=== PATIENT | female | born 2000 | race Hispanic/Latino ===

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

== ENCOUNTER 2020-03-15 08:37 | Emergency (ER) | payer OTHER, SELFPAY ==
--- NOTE | 2020-03-15 09:05 | ER ---
Nurse's Notes [facility] Name: Bruna Becerra Age: 19 yrs Sex: Female : 2000 Arrival Date: 03/15/2020 Time: 08:39 Bed 16 Private MD: Diagnosis: Otitis media, unspecified, bilateral;Acute upper respiratory infection, unspecified Presentation: 03/15 08:48 Chief complaint: Patient states: Bilateral ear pain x 2 days after blowing nose. jl7 Coronavirus screen: Client denies travel out of the [place] in the last 14 days. At this time, the client does not indicate any symptoms associated with coronavirus-19. Ebola Screen: No symptoms or risks identified at this time. Initial Sepsis Screen: Does the patient meet any 2 criteria? No. Patient's initial sepsis screen is negative. Does the patient have a suspected source of infection? No. Patient's initial sepsis screen is negative. Risk Assessment: Do you want to hurt yourself or someone else? Patient reports no desire to harm self or others. Onset of symptoms was March 13, 2020. Care prior to arrival: None. Transition of care: patient was not received from another setting of care. 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 - Social history:: Smoking status: Patient denies any tobacco usage or history of. Screenin:25 Abuse screen: Denies threats or abuse. Denies injuries from another. Nutritional jl7 screening: No deficits noted. Tuberculosis screening: No symptoms or risk factors identified. Fall Risk None identified. Assessment: 09:25 General: Appears in no apparent distress. uncomfortable, Behavior is calm, cooperative, jl7 appropriate for age. Pain: Complains of pain in left ear and right ear Pain currently is 7 out of 10 on a pain scale. Neuro: Level of Consciousness is awake, alert, obeys commands, Oriented to person, place, time, situation. Cardiovascular: Patient's skin is warm and dry. Respiratory: Airway is patent Respiratory effort is even, unlabored, Respiratory pattern is regular, symmetrical. EENT: Reports nasal congestion pain in left ear and right ear. Derm: Skin is pink, warm \T\ dry. Vital Signs: 08:48 BP 136 / 88; Pulse 103; Resp 16 S; Temp 98.2(O); Pulse Ox 99% on R/A; Weight 99.79 kg jl7 (R); Pain 7/10; ED Course: 08:39 Patient arrived in ED. as 08:48 Britany Wang, RN is Primary Nurse. jl7 08:49 Carlo Mcnally PA is PHCP. cp 08:49 Carlo Adrian MD is Attending Physician. cp 08:50 Triage completed. jl7 08:50 Arm band placed on right wrist. jl7 09:15 COVID-19 swab sent to lab. jl7 09:25 Patient has correct armband on for positive identification. Bed in low position. Call jl7 light in reach. Side rails up X 1. Pulse ox on. NIBP on. 09:26 No provider procedures requiring assistance completed. Patient did not have IV access jl7 during this emergency room visit. Administered Medications: No medications were administered Outcome: 09:05 Discharge ordered by . cp 09:27 Discharged to home ambulatory. jl7 09:27 Condition: stable 09:27 Discharge instructions given to patient, Instructed on discharge instructions, follow up and referral plans. medication usage, Demonstrated understanding of instructions, follow-up care, medications, Prescriptions given X 1. 09:27 Patient left the ED. jl7 Addendum: 03/16/2020 14:41 Addendum: COVID-19 Result: Negative result given to RN to notify pt. Attempted to s s contact pt regarding negative COVID-19 swab results. Unable to leave voice mail due to the number provided was either not a working number, the voice mail has not been set up, or the voice mailbox is full.. Other: BUSY tone. Multiple attempts made. Signatures: Wendy Sutherland Shelby, RN MCKENZIE Carlo Mcnally PA PA cp Britany Wang, MCKENZIE [email or web address]
--- NOTE | 2020-03-15 09:05 | EDPHYS ---
Physician Documentation [facility] Name: Bruna Becerra Age: 19 yrs Sex: Female : 2000 Arrival Date: 03/15/2020 Time: 08:39 Bed 16 Private MD: ED Physician Carlo Adrian HPI: 03/15 08:59 This 19 yrs old Female presents to ER via Ambulatory with complaints of Ear cp Pain. 08:59 The patient presents with pain, that is acute. The complaints affect the right ear and cp left ear. Onset: The symptoms/episode began/occurred yesterday. Associated signs and symptoms: Pertinent positives: sore throat, cough, rhinorrhea, Pertinent negatives: fever, vomiting, diarrhea. 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 - Social history:: Smoking status: Patient denies any tobacco usage or history of. ROS: 09:00 Eyes: Negative for injury, pain, redness, and discharge. cp 09:00 Constitutional: Negative for body aches, chills, fever, poor PO intake. 09:00 ENT: Positive for ear pain, rhinorrhea, sore throat, Negative for drainage from ear(s), difficulty swallowing, difficulty handling secretions. 09:00 Cardiovascular: Negative for chest pain, palpitations. 09:00 Respiratory: Positive for cough, Negative for shortness of breath, wheezing. 09:00 Abdomen/GI: Negative for abdominal pain, vomiting, diarrhea, constipation. 09:00 Skin: Negative for rash. 09:00 Neuro: Negative for headache. 09:00 All other systems are negative. Exam: 09:02 Head/Face: Normocephalic, atraumatic. cp 09:02 Constitutional: The patient appears in no acute distress, alert, awake, non-toxic, well developed, well nourished. 09:02 Eyes: Periorbital structures: appear normal, Conjunctiva: normal, no exudate, no injection, Lids and lashes: appear normal, bilaterally. 09:02 ENT: External ear(s): are unremarkable, Ear canal(s): are normal, clear, TM's: bulging, on the right, erythema, that is moderate, bilaterally, Nose: nasal drainage, that is minimal, and is seen coming from both nares, that is clear, Mouth: Lips: moist, Oral mucosa: moist, Posterior pharynx: Airway: no evidence of obstruction, patent, Tonsils: no enlargement, no exudate, erythema, that is mild, exudate, is not appreciated. 09:02 Neck: ROM/movement: is normal, is supple, without pain, no range of motions limitations, no meningismus, Lymph nodes: no appreciated lymphadenopathy. 09:02 Chest/axilla: Inspection: normal. 09:02 Cardiovascular: Rate: tachycardic. 09:02 Respiratory: the patient does not display signs of respiratory distress, Respirations: normal, no use of accessory muscles, no retractions, labored breathing, is not present, Breath sounds: are clear throughout, no decreased breath sounds, no stridor, no wheezing. Vital Signs: 08:48 BP 136 / 88; Pulse 103; Resp 16 S; Temp 98.2(O); Pulse Ox 99% on R/A; Weight 99.79 kg jl7 (R); Pain 7/10; MDM: 08:49 Patient medically screened. [facility] 09:04 Data reviewed: vital signs, nurses notes, and as a result, I will discharge patient. cp 03/15 08:59 Order name: [id number]-19 cp Administered Medications: No medications were administered Disposition: 16:00 Co-signature as Attending Physician, Carlo Adrian MD I agree with the assessment and [facility] plan of care. Disposition: 03/15/20 09:05 Discharged to Home. Impression: Otitis media, unspecified, bilateral, Acute upper respiratory infection, unspecified. - Condition is Stable. - Discharge Instructions: Otitis Media, Adult, Upper Respiratory Infection, Adult. - Prescriptions for Amoxicillin 875 mg Oral Tablet - take 1 tablet by ORAL route every 12 hours for 10 days; 20 tablet. - Medication Reconciliation Form, Thank You Letter, Antibiotic Education, Prescription Opioid Use form. - Follow up: Private Physician; When: 2 - 3 days; Reason: Worsening of condition. - Problem is new. - Symptoms are unchanged. Signatures: Dispatcher [employer] EDMS Nguyễn, MD MD fatoumata Matos Corey, PA PA cp Leal, Jahala, RN RN jl7 Corrections: (The following items were deleted from the chart) 09:27 09:05 03/15/2020 09:05 Discharged to Home. Impression: Otitis media, unspecified, jl7 bilateral; Acute upper respiratory infection, unspecified. Condition is Stable. Forms are Medication Reconciliation Form, Thank You Letter, Antibiotic Education, Prescription Opioid Use. Follow up: Private Physician; When: 2 - 3 days; Reason: Worsening of condition. Problem is new. Symptoms are unchanged. cp
--- OUTSIDE RECORDS SUMMARY | 2020-03-15 09:37 | XMS REPORT | Summary of Care ---
:2000 Author Organization [facility] Address [address] [place] [address] Care Team Providers Name Role Phone Pcp, Patient Does Not Have A Primary Care Provider +[id number] 0-0000 Reason for Visit Reason Comments Results Encounter Details Date Type Department Care Team Description 01/17/2020 Telephone [facility] Pcp, Patient Does Not Results [address] [facility] [place] [address] [address] [facility] [phone] [place], [place] [address] Allergies Not on Filedocumented as of this encounter (statuses as of 01/17/2020) Medications Not on filedocumented as of this encounter (statuses as of 01/17/2020) Active Problems Not on filedocumented as of this encounter (statuses as of 01/17/2020) Social History Tobacco Use Types Packs/Day Years Used Date Never Assessed Sex Assigned at Date Recorded Not on file Job Start Date Occupation Industry Not on file Not on file Not on file Travel History Travel Start Travel End No recent travel history available. COVID-19 Exposure Response Date Recorded In the last month, have you been in contact with Yes 01/16/2020 3:08 PM CDT someone who was confirmed or suspected to have Coronavirus / COVID-19? documented as of this encounter Last Filed Vital Signs Not on filedocumented in this encounter Plan of Treatment Health Maintenance Due Date Last Done Comments VARICELLA VACCINES (1 of 2 - 2-dose 2001 childhood series) MENINGOCOCCAL B VACCINES (1 of 2 - 2010 Risk Bexsero 2-dose series) DTaP,Tdap,and Td Vaccines (1 - 2011 Tdap) HPV VACCINES (1 - Female 2-dose 2011 series) Depression Screening 2012 WELL CARE VISIT: 12-21 YEARS 2012 (yearly) CHLAMYDIA SCREENING 2016 INFLUENZA VACCINE (#1) 2020 MENINGOCOCCAL VACCINE Aged Out No longer eligible based on patient's age to complete this topic PNEUMOCOCCAL 0-64 YEARS COMBINED Aged Out No longer eligible based on SERIES patient's age to complete this topic documented as of this encounter Results Not on filedocumented in this encounter Additional Health Concerns Infection Onset Date Last Indicated Resolved Time COVID-19 Rule Out 01/16/2020 01/16/2020 01/17/2020 3: 25 PM CDT COVID-19 Confirmed 01/16/2020 01/16/2020 documented as of this encounter
--- OUTSIDE RECORDS SUMMARY | 2020-03-15 09:37 | XMS REPORT | Summary of Care ---
:2000 Author Organization [facility] Address [address] [place] [address] Care Team Providers Name Role Phone Pcp, Patient Does Not Have A Primary Care Provider +[id number] [id number] Encounter Details Date Type Department Care Team Description 01/16/2020 Letter (Out) [facility] MyChart Message s Doctor Unassigned, No [address] [facility] [place] [phone] [facility] [phone] [place] [address] Allergies Not on Filedocumented as of this encounter (statuses as of 01/16/2020) Medications Not on filedocumented as of this encounter (statuses as of 01/16/2020) Active Problems Not on filedocumented as of this encounter (statuses as of 01/16/2020) Social History Tobacco Use Types Packs/Day Years Used Date Never Assessed Sex Assigned at Date Recorded Not on file Job Start Date Occupation Industry Not on file Not on file Not on file Travel History Travel Start Travel End No recent travel history available. documented as of this encounter Last Filed [...]
--- OUTSIDE RECORDS SUMMARY | 2020-03-15 09:37 | XMS REPORT | Summary of Care ---
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 [address] [place] [id number] Suspected Covid-19 [facility], Ad[facility] Fam Pob I Virus Infection [address] [place] [address] (Primary D x) [place] [address] Allergies Not on Filedocumented as of this [...] filedocumented in this encounter Plan of Treatment Name Type Priority Associated Diagnoses Order S chedule COVID-19 (PCR MOLECULAR LAB Routine Suspected Covid-1 9 Virus Expected: 01/16/2020, TESTING) Infection Expires: 2020 Health Maintenance Due Date Last Done Comments [...] Results Not on filedocumented in this encounter Visit Diagnoses Diagnosis Suspected Covid-19 Virus Infection - Pat asael documented in this encounter Additional Health Concerns Infection Onset Date Last Indicated Resolved Time COVID-19 Rule Out 01/16/2020 01/16/2020 documented as of this encounter
--- OUTSIDE RECORDS SUMMARY | 2020-03-15 09:37 | XMS REPORT | Summary of Care ---
:2000 Author Organization [facility] Address [address] [place] [address] Care Team Providers Name Role Phone Pcp, Patient Does Not Have A Primary Care Provider [id number] 0-0000 Reason for Visit Reason Comments Results Encounter Details Date Type Department Care Team Description 01/17/2020 Telephone [facility] Pcp, Patient Does Not Results [address] [facility] [place] [address] [address] [place] [address] [place], [place] [address] Allergies Not on Filedocumented as of this encounter (statuses as of 01/19/2020) Medications Not on filedocumented as of this encounter (statuses as of 01/19/2020) Active Problems Not on filedocumented as of this encounter (statuses as of 01/19/2020) Social History Tobacco Use Types Packs/Day Years [...]
--- OUTSIDE RECORDS SUMMARY | 2020-03-15 09:37 | XMS REPORT | Continuity of Care Document ---
:2000 Author Organization [facility] t Address [address] [place] [address] Care Team Providers Name Role Phone Pcp, Patient Does Not Have A Attending Clinician [phone] Problems Condition Condition Condition Status Onset Resolution Last Treating Co mments Source Name Details Category Date Date Treatment Clinician Date Sprain of Sprain of Diagnosis Active [facility] anterior anterior [facility] - talofibula talofibula Me moria r ligament r ligament l [facility], ent initial initial Clinics encounter encounter Pain in Pain in Diagnosis Active [facility] left ankle Gisselle kes - and joints and joints Me moria of left of left l foot [facility] Clin[facility] Allergies, Adverse Reactions, Alerts This patient has no known allergies or adverse reactions. Medications This patient has no known medications. Procedures This patient has no known procedures. Encounters Start End Encounter Admission Attending Care Care Encounter Source Date/Time Date/Time Type Type Clinicians Facility Department ID 2020-01-17 2020-01-17 Telephone FREDDIE Benjamin [id number] 00:00:00 00:00:00 Patient LUIS [id number] Does Not HOSPITAL [id number] Have A [id number] 2018-07-14 2018-07-14 [facility] [id number] 10:30:00 10:30:00 t [facility] ent Clinics Results This patient has no known results.
[2020-03-15 10:20] VITALS: BP 136/88; TEMP 98.2; O2SAT 99
== END 2020-03-15 09:27 | disposition home or self-care (01) ==
LOC: ER 08:37
DX: H66.93 Otitis media, unspecified, bilateral (principal); Z20.828 Contact with and (suspected) exposure to other viral communicable diseases; J06.9 Acute upper respiratory infection, unspecified
CPT/HCPCS: 99283; U0002

== ENCOUNTER 2021-06-29 17:39 | Emergency (ER) | payer SELFPAY ==
[2021-06-29 23:35] LABS: Urine Blood Negative (Negative); Urine Glucose Negative (Negative); Urine Protein Trace (Negative); Urine Specific Gravity 1.025 (1.005-1.030)
[2021-06-29 23:36] LABS: Absolute Lymphocytes (CBC) 2.3 K/uL (0.7-4.9); Hematocrit 48.1 % (36.0-45.0); Lymphocytes % 16.8 % (15.3-44.8); MPV 10.2 fL (7.6-11.3); RBC Red Blood Cell Count 5.22 M/uL (3.86-4.86)
[2021-06-29] MEDS ORDERED: ONDANSETRON 4 MG (ODT) TAB ONE (23:39)
[2021-06-29] MEDS ORDERED: NA CHLORIDE 0.9% 1,000 ML ONE (23:39)
[2021-06-29 23:40] LABS: Urine Specific Gravity/Preg 1.025 (1.005-1.030)
[2021-06-29 23:54] LABS: ALT/SGPT 124 U/L (12-78); AST/SGOT 60 U/L (15-37); Albumin 3.9 g/dL (3.4-5.0); Alkaline Phosphatase 145 U/L (45-117); BUN Blood Urea Nitrogen 9 mg/dL (7-18); Bicarbonate 24 mmol/L (21-32); Bilirubin Direct 0.4 mg/dL (0-0.2); Bilirubin Total 1.2 mg/dL (0.2-1.0); Glucose Level 98 mg/dL (74-106); Lipase 136 U/L (73-393); Potassium 3.5 mmol/L (3.5-5.1); Protein, Total 9.1 g/dL (6.4-8.2); Sodium Level 134 mmol/L (136-145)
--- NOTE | 2021-06-30 01:31 | EDPHYS ---
Physician Documentation [facility] Name: Bruna Becerra Age: 21 yrs Sex: Female : 2000 Arrival Date: 06/29/2021 Time: 17:43 Bed DIS11 Private MD: ED Physician Carlo Adrian HPI: 06/29 18:53 This 21 yrs old Female presents to ER via Ambulatory with complaints of pm1 Abdominal Pain, Nausea/Vomiting. 18:53 The patient presents with abdominal pain. pm1 18:53 Onset: The symptoms/episode began/occurred 5 day(s) ago. The symptoms do not radiate. pm1 Associated signs and symptoms: Pertinent positives: nausea and vomiting, Pertinent negatives: chest pain, constipation, diarrhea, shortness of breath. The symptoms are described as achy. Modifying factors: The symptoms are alleviated by nothing, the symptoms are aggravated by nothing. Severity of pain: in the emergency department the pain is actually worse. The patient has not experienced similar symptoms in the past. The patient has not recently seen a physician. 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 - Social history:: Smoking status: Patient denies any tobacco usage or history of. ROS: 18:53 Constitutional: Negative for fever, chills, and weight loss, Cardiovascular: Negative pm1 for chest pain, palpitations, and edema, Respiratory: Negative for shortness of breath, cough, wheezing, and pleuritic chest pain. 18:53 Back: Negative for injury and pain, MS/Extremity: Negative for injury and deformity, Skin: Negative for injury, rash, and discoloration, Neuro: Negative for headache, weakness, numbness, tingling, and seizure. 18:53 Abdomen/GI: Positive for abdominal pain, nausea and vomiting, Negative for diarrhea, constipation. 18:53 All other systems are negative. Exam: 06/30 00:13 Constitutional: This is a well developed, well nourished patient who is awake, alert, pm1 and in no acute distress. Head/Face: Normocephalic, atraumatic. Back: No spinal tenderness. No costovertebral tenderness. Full range of motion. Skin: Warm, dry with normal turgor. Normal color with no rashes, no lesions, and no evidence of cellulitis. MS/ Extremity: Pulses equal, no cyanosis. Neurovascular intact. Full, normal range of motion. Cardiovascular: Exam negative for acute changes, Rate: normal, Rhythm: regular, Pulses: no pulse deficits are appreciated. Respiratory: Exam negative for acute changes, respiratory distress, shortness of breath, Breath sounds: are clear throughout. Abdomen/GI: Inspection: obese Palpation: soft, in all quadrants, mild abdominal tenderness, in the suprapubic area. Neuro: Exam negative for acute changes, Orientation: is normal, Mentation: is normal, Motor: is normal, moves all fours. Vital Signs: 06/29 18:41 BP 160 / 115; Pulse 99; Resp 18; Temp 98.1(O); Pulse Ox 97% ; Weight 95.25 kg; Height 5 smith ft. 4 in. (162.56 cm) (R); 23:46 BP 147 / 112; Pulse 87; Resp 16; Temp 98.8(O); Pulse Ox 98% ; lt3 06/30 01:46 BP 135 / 75; Pulse 75; Resp 18; Temp 98.4; bb 02:35 BP 131 / 96; Pulse 77; Resp 16 S; Temp 98.7(O); Pulse Ox 97% on R/A; bb 06/29 18:41 Body Mass Index 36.05 (95.25 kg, 162.56 cm) smith MDM: 06/29 18:57 Patient medically screened. pm1 06/30 01:29 Data reviewed: vital signs. Data interpreted: Pulse oximetry: on room air is 98 %. pm1 Interpretation: normal. Counseling: I had a detailed discussion with the patient and/or guardian regarding: the historical points, exam findings, and any diagnostic results supporting the discharge/admit diagnosis, lab results, radiology results, the need for outpatient follow up, to return to the emergency department if symptoms worsen or persist or if there are any questions or concerns that arise at home. 06/29 18:47 Order name: Basic Metabolic Panel; Complete Time: 23:58 pm1 06/29 18:47 Order name: CBC with Diff; Complete Time: 23:58 pm1 06/29 18:47 Order name: Hepatic Function; Complete Time: 23:58 pm1 06/29 18:47 Order name: Lipase; Complete Time: 23:58 pm1 06/29 23:35 Order name: Urine Dipstick-Ancillary; Complete Time: 23:58 EDMS 06/29 23:37 Order name: Urine --Ancillary (enter results); Complete Time: 23:58 ds4 06/29 18:47 Order name: IV Saline Lock; Complete Time: 23:30 pm1 06/29 18:47 Order name: Labs collected and sent; Complete Time: 23:30 pm1 06/29 18:47 Order name: Urine Dipstick-Ancillary (obtain specimen); Complete Time: 23:37 pm1 06/29 18:47 Order name: Urine Test (obtain specimen); Complete Time: 23:37 pm1 06/30 00:13 Order name: CT Abd/Pelvis - IV Contrast Only pm1 Administered Medications: 06/29 23:41 Drug: NS 0.9% 1000 ml Route: IV; Rate: 1000 ml; Site: right antecubital; 5 23:42 Drug: Ondansetron 4 mg Route: PO; sm5 Disposition Summary: 06/30/21 01:31 Discharge Ordered Location: Home pm1 Problem: new pm1 Symptoms: have improved pm1 Condition: Stable pm1 Diagnosis - Abdominal pain, unspecified pm1 - Vomiting pm1 Followup: pm1 - With: Emergency Department - When: As needed - Reason: Worsening of condition Followup: pm1 - With: Private Physician - When: 2 - 3 days - Reason: Recheck today's complaints, Continuance of care, Re-evaluation by your physician Discharge Instructions: - Discharge Summary Sheet pm1 - Abdominal Pain, Adult pm1 - Nausea and Vomiting, Adult pm1 Forms: - Medication Reconciliation Form pm1 - Thank You Letter pm1 - Antibiotic Education pm1 - Prescription Opioid Use pm1 Prescriptions: - ondansetron 4 mg Oral tablet,disintegrating - place 1 tablet by TRANSLINGUAL route every 8 hours As needed; 15 tablet; pm1 Refills: 0, Product Selection Permitted - dicyclomine 20 mg Oral Tablet - take 1 tablet by ORAL route every 6 hours As needed; 20 tablet; Refills: 0, pm1 Product Selection Permitted Addendum: 07/01/2021 09:07 I agree with the assessment and plan of care. larry smith Signatures: Dispatcher [employer] Carlo Watkins MD MD cha Marinas, Patrick, AIRCRAFT SHEET METAL MECHANIC AIRCRAFT SHEET METAL MECHANIC [email or web address] Ute Enciso RN RN 5 Mildred Hernández RN RN smith
--- NOTE | 2021-06-30 01:31 | ER ---
Nurse's Notes [facility] Name: Bruna Becerra Age: 21 yrs Sex: Female : 2000 Arrival Date: 06/29/2021 Time: 17:43 Bed DIS11 Private MD: Diagnosis: Abdominal pain, unspecified;Vomiting Presentation: 06/29 18:41 Chief complaint: Spouse and/or significant other states: abdominal pain n/v x5days. smith Coronavirus screen: Vaccine status: Patient reports receiving the 2nd dose of the covid vaccine. Ebola Screen: Patient denies travel to an Ebola-affected area in the 21 days before illness onset. Initial Sepsis Screen: Does the patient meet any 2 criteria? No. Patient's initial sepsis screen is negative. Does the patient have a suspected source of infection? No. Patient's initial sepsis screen is negative. Risk Assessment: Do you want to hurt yourself or someone else? Patient reports no desire to harm self or others. Onset of symptoms was June 24, 2021. 18:41 Method Of Arrival: Ambulatory smith 18:41 Acuity: JOHAN 3 smith Triage Assessment: 18:42 General: Appears in no apparent distress. Behavior is calm, cooperative. Pain: smith Complains of pain in abdomen. GI: Reports lower abdominal pain, nausea, vomiting. 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 - Social history:: Smoking status: Patient denies any tobacco usage or history of. Screenin:30 Abuse screen: Denies threats or abuse. Nutritional screening: No deficits noted. bb Tuberculosis screening: No symptoms or risk factors identified. Fall Risk None identified. Assessment: 23:30 General: Appears in no apparent distress. uncomfortable, Behavior is calm, cooperative. bb Pain: Complains of pain in abdomen. Neuro: Level of Consciousness is awake, alert, obeys commands, Oriented to person, place, time, situation. Cardiovascular: No deficits noted. Respiratory: Respiratory effort is even, unlabored. GI: Abdomen is round. Derm: Skin is pink, warm \T\ dry. Musculoskeletal: Circulation, motion, and sensation intact. 06/30 02:35 Reassessment: Patient is alert, oriented x 3, equal unlabored respirations, skin bb warm/dry/pink. pt verbalized understanding of and agrees to plan of care discharge instructions given pt ambulated with steady gait to exit. Vital Signs: 06/29 18:41 BP 160 / 115; Pulse 99; Resp 18; Temp 98.1(O); Pulse Ox 97% ; Weight 95.25 kg; Height 5 smith ft. 4 in. (162.56 cm) (R); 23:46 BP 147 / 112; Pulse 87; Resp 16; Temp 98.8(O); Pulse Ox 98% ; lt3 06/30 01:46 BP 135 / 75; Pulse 75; Resp 18; Temp 98.4; bb 02:35 BP 131 / 96; Pulse 77; Resp 16 S; Temp 98.7(O); Pulse Ox 97% on R/A; bb 06/29 18:41 Body Mass Index 36.05 (95.25 kg, 162.56 cm) smith ED Course: 06/29 17:43 Patient arrived in ED. am2 18:42 Triage completed. smith 18:42 Arm band placed on. smith 18:44 Marcelino Hurley NP is PHCP. pm1 18:44 Carlo Adrian MD is Attending Physician. pm1 23:29 Initial lab(s) drawn, by hi, sent to lab. Inserted saline lock: 22 gauge in right lt3 antecubital area, using aseptic technique. 23:30 Patient has correct armband on for positive identification. Bed in low position. Call bb light in reach. 23:30 No provider procedures requiring assistance completed. bb 23:46 Urine collected: clean catch specimen. lt3 06/30 00:44 CT Abd/Pelvis - IV Contrast Only In Process Unspecified. EDMS 02:37 IV discontinued, intact, bleeding controlled, No redness/swelling at site. Pressure bb dressing applied. Administered Medications: 06/29 23:41 Drug: NS 0.9% 1000 ml Route: IV; Rate: 1000 ml; Site: right antecubital; sm5 23:42 Drug: Ondansetron 4 mg Route: PO; sm5 Outcome: 06/30 01:31 Discharge ordered by . pm1 02:37 Discharged to home ambulatory. bb 02:37 Condition: stable 02:37 Discharge instructions given to patient, Instructed on discharge instructions, follow up and referral plans. medication usage, Demonstrated understanding of instructions, follow-up care, medications, Prescriptions given X 2. 02:38 Patient left the ED. honorio Signatures: Dispatcher [employer] EDLisa Trinidad RN RN Marcelino Rodriguez, MILL BEAM FITTER MILL BEAM FITTER pm1 Marcelle Morris am2 Ute Enciso RN RN 5 Shayy Cordova lt3 Au-StagerMildred RN RN smith
[2021-06-30 02:51] VITALS: BP 131/96; TEMP 98.7; O2SAT 97
--- NOTE | 2021-06-30 18:39 | RAD REPORT ---
EXAM DESCRIPTION: CT - Abdomen Pelvis W Contrast - 06/30/2021 6:45 am CLINICAL HISTORY: The patient is 21 years old and is Female; ABD PAIN TECHNIQUE: Axial computed tomography images of the abdomen and pelvis with intravenous contrast. S agittal and coronal reformatted images were created and reviewed. This CT exam was performed using one or more of the following dose reduction techniques: automated exposure control, adjustment of t he mA and/or kV according to patient size, and/or use of iterative reconstruction technique. COMPARISON: No relevant prior studies available. FINDINGS: LUNG BASES: Unremarkable. No mass. No consolidation. ABDOMEN: LIVER: The liver is mildly fatty. GALLBLADDER AND BILE DUCTS: No calcified stones. No ductal dilation. PANCREAS: No ductal dilation. No mass. SPLEEN: Unremarkable. ADRENALS: Unremarkable. No mass. KIDNEYS AND URETERS: Unremarkable. The kidneys enhance symmetrically. No obstructing renal or ure teral calculus is seen. No hydronephrosis or hydroureter. No perinephric fluid or stranding. STOMACH AND BOWEL: The stomach is filled with fluid and air. The small bowel is normal in caliber . Stool is present throughout colon. There is no mucosal thickening or evidence of bowel obstruction. PELVIS: APPENDIX: The appendix is normal in caliber without surrounding inflammation. BLADDER: The bladder is not well distended. REPRODUCTIVE: Unremarkable as visualized. ABDOMEN and PELVIS: INTRAPERITONEAL SPACE: Unremarkable. No free air. No significant fluid collection. BONES/JOINTS: No acute fracture. SOFT TISSUES: The soft tissues are normal. VASCULATURE: Unremarkable. No abdominal aortic aneurysm. LYMPH NODES: Unremarkable. No enlarged lymph nodes. IMPRESSION: No acute findings on this contrasted CT of the abdomen and pelvis to explain the patient 's symptoms. Electronically signed by: Glenys Conti MD 06/30/2021 1:03 AM DECAL DECORATOR Due to temporary technical issues with the PACS/Fluency reporting system, reports are being signed by the in house radiologists without review as a courtesy to insure prompt reporting. The interpreting radiologist is fully responsible for the content of the report.
== END 2021-06-30 02:38 | disposition home or self-care (01) ==
LOC: ER 17:39
DX: R10.9 Unspecified abdominal pain (principal); R11.10 Vomiting, unspecified
CPT/HCPCS: 36415; 74177; 80048; 80076; 81003; 81025; 83690; 85025; 99284; J7030; Q9967